=== PATIENT | female | born 1955 | race Caucasian/White ===

== ENCOUNTER → 2021-01-15 11:40 | Outpatient (CLI) | payer OTHER, SELFPAY ==
[2021-01-15 12:21] LABS: Add Manual Diff / Slide Review NO; Basophils Absolute Auto 100 /uL (0-100); Basophils Percent Auto 0.9 % (0-2); Eosinophils Absolute Auto 200 /uL (0-450); Eosinophils Percent Auto 3.2 % (2-4); Hematocrit 40.5 % (36-46); Hemoglobin 13.3 g/dL (12.0-16.0); Lymphocytes Absolute Auto 2200 /uL (1100-4500); Lymphocytes Percent Auto 34.1 % (25-40); Mean Corpuscular HGB Conc 32.8 % (30-36); Mean Corpuscular Hemoglobin 26.9 PG (26-34); Mean Corpuscular Volume 81.8 fL (80-100); Monocytes Absolute Auto 600 /uL (0-900); Monocytes Percent Auto 8.8 % (3-14); Neutrophils Absolute Auto 3400 /uL (1500-7000); Platelet Count 212 X10^3/uL (150-400); Red Blood Cell Count 4.95 X10^6/uL (4.0-5.2); Red Cell Distribution Width 13.7 % (11.6-14.8); White Blood Cell Count 6.4 X10^3/uL (4.5-11.0)
[2021-01-15 12:33] LABS: Hemoglobin A1C% w Est Avg Glu 5.9 % (4.0-6.0)
[2021-01-15 12:39] LABS: Alanine Aminotransferase 30 IU/L (<35); Albumin 4.1 g/dL (3.5-5.0); Albumin Globulin Ratio 1.6 (1.0-2.8); Alkaline Phosphatase 82 U/L (38-126); Aspartate Aminotransferase 30 IU/L (14-36); BUN Creatinine Ratio 18.6 (6-22); Bilirubin Total 0.4 mg/dL (0.2-1.3); Blood Urea Nitrogen 13 mg/dL (7-17); Calcium 9.3 mg/dL (8.4-10.2); Carbon Dioxide 27 mmol/L (22-32); Chloride 105 mmol/L (98-107); Cholesterol 240 mg/dL (140-199); Estimated Glomerular Filt Rate > 60.0 mL/min (>60); Globulin 2.5 g/dL (1.7-4.1); Glucose 110 mg/dL (80-110); HDL Cholesterol 81 mg/dL (40-60); HEMOLYSIS < 15 (0-50); LDL Cholesterol Calculated 141 mg/dL (<100); Potassium 4.5 mmol/L (3.4-5.1); Sodium 139 mmol/L (137-145); Total Protein 6.6 g/dL (6.3-8.2); Triglycerides 88 mg/dL (35-150)
[2021-01-15 12:54] LABS: Vitamin D 25 Hydroxy (D3) 35.5 ng/mL (30.0-100.0)
[2021-01-15 13:08] LABS: TSH w/ Reflex to FT4 1.54 uIU/mL (0.47-4.68)
== END ==
PROVIDERS: Referring Provider Physician Assistant; Visit Provider Physician Assistant
DX: E66.9 Obesity, unspecified (principal); R53.83 Other fatigue; F33.0 Major depressive disorder, recurrent, mild; Z86.19 Personal history of other infectious and parasitic diseases; Z13.220 Encounter for screening for lipoid disorders
CPT/HCPCS: 36415; 80053; 80061; 82306; 83036; 84443; 85025

== ENCOUNTER → 2021-01-20 17:40 | Outpatient (CLI) | payer OTHER, SELFPAY ==
--- NOTE | 2021-01-20 | DI.MRI.S_ITS ---
PROCEDURE: MR KNEE LT WO CON INDICATIONS: Pain in left knee TECHNIQUE: Noncontrast sagittal PD fast spin echo and T2 fast spin echo with fat saturation, sagittal 3-D FLASH with fat saturation; coronal T1 spin echo and PD fast spin echo with fat saturation, and axial PD fast spin echo with fat saturation through the knee. COMPARISON: None. FINDINGS: Image quality: Excellent. Menisci: There is horizontal oblique tearing of the posterior horn and body of the medial meniscus extending to the inner third of the tibial articular surface. The lateral meniscus is intact. There is no significant meniscal extrusion. Cruciate ligaments: The anterior and posterior cruciate ligaments appear intact. Medial structures: The medial collateral ligament appears intact. The semimembranosus tendon insertions and meniscocapsular junction appear intact. Visualized portions of the pes anserinus tendons appear normal. No abnormal bursal fluid. Lateral structures: There is mild thickening of the proximal lateral collateral ligament, compatible with a prior low-grade sprain. The distal biceps femoris tendon and the conjoint tendon are intact. The popliteus tendon appears intact. No signs of posterolateral corner injury. Iliotibial band appears normal. Anterior structures: The quadriceps and patellar tendons appear intact. Patellar alignment is normal. No femoral trochlear dysplasia or ventral trochlear prominence. No edema in the infrapatellar fat pad. Bones and cartilage: No acute trabecular bone injury. There is mild to moderate partial-thickness cartilage thinning in the central to posterior weight-bearing portion of the medial femorotibial compartment. The lateral compartment articular cartilages are grossly maintained. Full-thickness cartilage loss is seen at the median ridge of the patella in the adjacent portions of the medial and lateral patellar facets with subchondral cystic changes and edema in mild irregularity of the subchondral plate. Cartilage fissuring is seen at the anterior aspect of the medial femoral condyle and in the trochlear groove. Joint space: A small joint effusion is present. There is a trace medial popliteal cyst. IMPRESSION: 1. Horizontal oblique tear of the posterior horn and body of the medial meniscus extending to the inner third of the tibial articular surface. 2. Full-thickness cartilage loss at the median ridge of the patella with subchondral cystic changes and edema. Additional deep cartilage fissuring is seen in the anterior compartment and there is grade 2-3 cartilage thinning in the medial compartment. 3. Chronic low-grade sprain of the proximal lateral collateral ligament. 4. Small joint effusion. Dictated by: Francisco Hudson M.D. on 01/21/2021 at 9:41 Approved by: Francisco Hudson M.D. on 01/21/2021 at 9:47
== END ==
PROVIDERS: Referring Provider Internal Medicine; Visit Provider Internal Medicine
DX: M25.562 Pain in left knee (principal); S83.242A Other tear of medial meniscus, current injury, left knee, initial encounter; S83.422A Sprain of lateral collateral ligament of left knee, initial encounter; M25.462 Effusion, left knee
CPT/HCPCS: 73721

== ENCOUNTER → 2021-01-30 16:14 | Outpatient (CLI) | payer OTHER, SELFPAY ==
--- NOTE | 2021-01-30 | DI.MG.S_ITS ---
BILATERAL DIGITAL SCREENING MAMMOGRAM 3D/2D WITH CAD: 01/30/2021 CLINICAL: Routine screening. Baseline exam. No prior exams were available for comparison. There are scattered fibroglandular elements in both breasts. Current study was also evaluated with a Computer Aided Detection (CAD) system. No significant masses, calcifications, or other findings are seen in either breast. IMPRESSION: NEGATIVE There is no mammographic evidence of malignancy. A 1 year screening mammogram is recommended. This exam was interpreted at Station ID: [id number]. NOTE: For mammograms, a report in lay terms will be sent to the patient. Approximately 15% of breast malignancies will not be visualized mammographically. In the management of a palpable breast mass, a negative mammogram must not discourage biopsy of a clinically suspicious lesion. Electronically Signed By: Abhilash stubbs/claus:01/30/2021 17:28:30 letter sent: Normal Exam ACR BI-RADS Category 1: Negative [id number]
== END ==
PROVIDERS: PCP Physician Assistant; Referring Provider Physician Assistant; Visit Provider Physician Assistant
DX: Z12.31 Encounter for screening mammogram for malignant neoplasm of breast (principal)
CPT/HCPCS: 77063; 77067

== ENCOUNTER 2021-02-19 14:47 | Emergency (ER) | payer OTHER, SELFPAY ==
[2021-02-19 14:50] VITALS: BP 123/57; PULSE 65; RESP 15; TEMP 36.4; O2SAT 100; BMI 31.0
[2021-02-19 14:53] VITALS: BP 123/57; PULSE 66; O2SAT 100
--- NOTE | 2021-02-19 14:55 | ED.ALLEREA ---
HPI - Allergic Reaction General Chief complaint: Allergic Reaction Stated complaint: Stung by bee on face/feels faint Time Seen by Provider: 02/19/21 14:53 Source: patient Mode of arrival: Ambulatory Limitations: no limitations History of Present Illness HPI narrative: 65-year-old female nonsmoker with noncontributory medical history presents with a chief complaint of a bee sting on the right side of her face minutes prior to her arrival. She thinks she had a previous allergic reaction to a bee sting but is unable to describe what that may have been. She is very anxious and feels shaky, she thinks she maybe even taken an extra dose of 1 of her anti anxiety medications. She did not take any allergic medications such as Benadryl or Pepcid prior to coming. Initially she states that she has no tongue, lip or throat swelling nor any difficulty swallowing or breathing but changes her tone a bit on repeat question. She denies any rash or GI complaints such as abdominal pain or diarrhea MD complaint: allergic reaction Onset (ago): minute(s) Exposure: insect bite Symptoms: difficulty swallowing and difficulty breathing Severity: mild Treatment prior to arrival: none Previous Allergic Reaction History: other Related Data Previous Rx's Medication Instructions Recorded epinephrine [EpiPen 2-Carl] 0.3 mg IM Q5-15M PRN #2 each 02/19/21 prednisone 40 mg PO DAILY #5 tab 02/19/21 Allergies Allergy/AdvReac Type Severity Reaction Status Date / Time acetaminophen [From VICODIN] Allergy Unknown Verified 02/19/21 14:56 bee venom protein (honey bee) Allergy Unknown Verified 02/19/21 14:56 [BEE VENOM PROTEIN (HONEY BEE)] hydrocodone [HYDROCODONE] Allergy Unknown Verified 02/19/21 14:56 Review of Systems Constitutional Constitutional: Denies chills, Denies fatigue, Denies fever(s), Denies frequent falls, Denies lethargy and Denies weakness Eyes Eyes: Denies change in vision, Denies eye discharge, Denies irritation and Denies loss of vision ENT Ears, Nose, Mouth, and Throat: Denies change in voice, Denies dizziness, Denies neck pain, Denies sore throat and Reports throat swelling Cardiovascular Cardiovascular: Denies chest pain, Denies irregular heart rhythm, Denies lightheadedness, Denies palpitations, Reports dyspnea, Denies dyspnea on exertion and Denies orthopnea Respiratory Respiratory: Denies cough, Reports dyspnea, Denies dyspnea on exertion and Denies wheezing Gastrointestinal Gastrointestinal: Denies abdominal pain, Denies change in bowel habits, Denies diarrhea, Denies nausea and Denies vomiting Musculoskeletal Musculoskeletal: Denies neck pain and Denies numbness Integumentary/Breasts Skin/Breast: Denies pruritus, Denies erythema, Denies rash and Denies wounds Neurologic Neurologic: Denies behavioral changes, Denies confusion, Denies dizziness, Denies frequent falls, Denies loss of vision, Denies numbness and Denies weakness Psychiatric Psychiatric: Denies anxiety, Denies behavioral changes, Denies confusion, Denies depression, Denies homicidal ideation and Denies suicidal ideation Endocrine Endocrine: Denies fatigue, Denies flushing and Denies palpitations Hematologic/Lymphatic Hematologic/Lymphatic: Denies easy bruising Allergic/Immunologic Allergic/Immunologic: Denies urticaria, Reports throat swelling and Denies wheezing Patient History Surgical History History of tonsillectomy Status post hysterectomy Status post myomectomy Family History Sister Age: 58 Diabetes mellitus Hypertension Hyperlipidemia Bipolar 1 disorder Sister Age: 60 An's disease Social History Smoking Status: Unknown if ever smoked Exam Narrative Exam Narrative: GENERAL: [65] year old patient appears stated age. Well-developed patient, in mild distress. Anxious HEAD: Atraumatic. Normocephalic. EYES: Pupils equal round and reactive. Extraocular motions intact. No scleral icterus. No injection or drainage. ENT: No obvious swelling of tongue, lip, throat Nose without bleeding, purulent drainage. Throat without erythema, tonsillar hypertrophy or exudate. Airway patent. NECK: Trachea midline. Non tender CARDIOVASCULAR: Regular rate and rhythm without murmurs, gallops, or rubs. RESPIRATORY: Clear to auscultation. Breath sounds equal bilaterally. No wheezes, rales, or rhonchi. GASTROINTESTINAL: Abdomen soft, non-tender, nondistended. EXTREMITIES: No edema or joint tenderness. BACK: Nontender without deformity or crepitance. No flank tenderness. NEURO: AOx3. SKIN: No rash or erythema of visible areas Initial Vital Signs Initial Vital Signs: Vital Signs Temperature 97.5 F L 02/19/21 14:50 Pulse Rate 65 02/19/21 14:50 Respiratory Rate 15 02/19/21 14:50 Blood Pressure 123/57 L 02/19/21 14:50 Pulse Oximetry 100 02/19/21 14:50 Course Course Course Narrative: Resting comfortably, feeling better after above-stated therapies Orders Ordered: Sodium Chloride (Normal Saline 0.9%) 1,000 mls @ 150 mls/hr IV CONT RICO Last Infusion: 02/19/21 16:32 Dose: 0 mls/hr Documented by: Admin: 02/19/21 14:59 Dose: 150 mls/hr Documented by: STEWART Discontinued Medications Diphenhydramine HCl (Diphenhydramine 50 Mg/Ml Vial) 25 mg IV NOW ONE Stop: 02/19/21 14:54 Last Admin: 02/19/21 14:59 Dose: 25 mg Documented by: STEWART Epinephrine HCl (Epinephrine 1 Mg/Ml) 0.5 mg IM NOW ONE Stop: 02/19/21 14:54 Last Admin: 02/19/21 15:00 Dose: 0.5 mg Documented by: STEWART Famotidine (Pepcid) 20 mg in 50 mls @ 200 mls/hr IV NOW ONE Stop: 02/19/21 15:07 Last Infusion: 02/19/21 15:36 Dose: 0 mls/hr Documented by: Admin: 02/19/21 15:00 Dose: 200 mls/hr Documented by: STEWART Methylprednisolone (Methylprednisolone 125 Mg/2 Ml Vial) 125 mg IV NOW ONE Stop: 02/19/21 14:54 Last Admin: 02/19/21 15:00 Dose: 125 mg Documented by: STEWART Vital Signs Vital signs: Vital Signs - 8 hr 02/19/21 14:50 02/19/21 14:53 02/19/21 15:00 Temperature 97.5 F L Pulse Rate 65 66 59 L Respiratory Rate 15 Blood Pressure 123/57 L 123/57 L 127/58 L Pulse Oximetry 100 100 97 02/19/21 15:30 02/19/21 16:00 02/19/21 16:32 Temperature Pulse Rate 97 H 94 H 95 H Respiratory Rate 24 20 18 Blood Pressure 179/77 H 143/65 H 143/65 H Pulse Oximetry 96 96 97 MDM - Allergic Reaction MDM Narrative Medical decision making narrative: Patient had minimal symptoms at onset and improvement with above-stated therapies. She has stable vitals, no facial swelling, throat swelling, trouble breathing or rash. Return precautions given and questions answered to her apparent satisfaction Discharge Plan Departure Patient Disposition: Home Clinical Impression: Allergic reaction Qualifiers: Encounter type: initial encounter Qualified Code(s): T78.40XA - Allergy, unspecified, initial encounter Instructions: DI for General Allergic Reactions Activity Restrictions/Additional Instructions: *You have been diagnosed with [allergic reaction from bee sting, mild symptoms with improvement after typical therapies *What to do: *Please continue to take your regular medications as directed. [ x] New medication prescriptions sent to your pharmacy: [[facility] ] Additionally please take [id number] antihistamines such as Benadryl and Pepcid for ongoing itching or swelling. *Please follow up with your primary care provider in 2-3 days, call for an appointment. Let them know you were seen in the Emergency Department and that we ask that you be seen in follow up. We will electronically transmit a record of today's note if your PCP is in our system *If you do not have a primary care provider please contact the [facility] Resource line at [phone]. They will ask some questions about your medical history and help get you set up with a doctor in the community. *Return to Emergency Department if you should have any new, worsening or concerning symptoms, such as [fever greater than 101 F, shaking chills, worsening pain, persistent vomiting or other bothersome symptoms] Prescriptions: New prednisone 20 mg tablet 40 mg PO DAILY Qty: 5 RF: 0 epinephrine [EpiPen 2-Carl] 0.3 mg/0.3 mL auto-injector 0.3 mg IM Q5-15M PRN (Reason: anaphylaxis) Qty: 2 RF: 0 Referrals: Shawanda Enriquez PA-C [Primary Care Provider] -
[2021-02-19] MEDS: SODIUM CHLORIDE 0.9% 1,000 ML 150 ML IV (14:59)
[2021-02-19] MEDS: diphenhydrAMINE 50 MG/ML VIAL 25 MG IV (14:59)
[2021-02-19 15:00] VITALS: BP 127/58; PULSE 59; O2SAT 97
[2021-02-19] MEDS: EPINEPHrine 1 MG/ML 0.5 MG IM (15:00)
[2021-02-19] MEDS: FAMOTIDINE 20 MG/50 ML PIGGYBACK 200 MG IV (15:00)
[2021-02-19] MEDS: methylPREDNISolone 125 MG/2 ML VIAL IV (15:00)
[2021-02-19 15:30] VITALS: BP 179/77; PULSE 97; RESP 24; O2SAT 96
--- NOTE | 2021-02-19 15:39 | PC.NURSE ---
pt states she was stung by a bee or wasp on the rt side of her face. pt states she put arnica on the area, didn't have benadryl. pt states she feels nauseated and like her heart is racing, at the time her heart rate was 60mph, she was diaphoretic, now resolved. airway clear.
[2021-02-19 16:00] VITALS: BP 143/65; PULSE 94; RESP 20; O2SAT 96
[2021-02-19 16:32] VITALS: BP 143/65; PULSE 95; RESP 18; O2SAT 97
== END 2021-02-19 16:33 | disposition home or self-care (01) ==
PROVIDERS: Emergency Provider Emergency Medicine; PCP Physician Assistant
DX: T63.441A Toxic effect of venom of bees, accidental (unintentional), initial encounter (principal); R06.00 Dyspnea, unspecified
CPT/HCPCS: 96361; 96365; 96372; 96375; 99284; J0171; J1200; J2930

== ENCOUNTER → 2023-01-30 13:15 | Outpatient (CLI) | payer OTHER, SELFPAY | PROVIDERS: PCP Physician Assistant; Visit Provider Nurse Practitioner Family | DX: Q30.9 Congenital malformation of nose, unspecified (principal) | CPT/HCPCS: 87070; 87075; 87077; 87147; 87186; 87205 ==

== ENCOUNTER → 2023-04-27 16:23 | Outpatient (CLI) | payer OTHER, SELFPAY ==
--- NOTE | 2023-04-27 16:27 | DI.RAD.S_ITS ---
PROCEDURE: XR KNEE LT 3V INDICATIONS: L knee pain/swelling TECHNIQUE: 3 views of the knee were acquired. COMPARISON: None. FINDINGS: Bones: No fractures or dislocations. No suspicious bony lesions. Soft tissues: Small joint effusion. No suspicious soft tissue calcifications. IMPRESSION: Small knee joint effusion, without displaced fracture. Dictated by: Vickey Carter M.D. on 04/27/2023 at 16:48 Approved by: Vickey Carter M.D. on 04/27/2023 at 16:48
== END ==
PROVIDERS: PCP Physician Assistant; Referring Provider Student in an Organized Health Care Education/Training Program; Visit Provider Student in an Organized Health Care Education/Training Program
DX: M25.562 Pain in left knee (principal); M25.462 Effusion, left knee
CPT/HCPCS: 73562

== ENCOUNTER → 2023-05-21 15:17 | Outpatient (CLI) | payer OTHER, SELFPAY ==
--- NOTE | 2023-05-21 15:21 | DI.MRI.S_ITS ---
PROCEDURE: MR KNEE LT WO CON INDICATIONS: Pain in L knee TECHNIQUE: Noncontrast sagittal PD fast spin echo and T2 fast spin echo with fat saturation, sagittal 3-D FLASH with fat saturation; coronal T1 spin echo and PD fast spin echo with fat saturation, and axial PD fast spin echo with fat saturation through the knee. COMPARISON: [facility], CR, XR KNEE LT 3V, 04/27/2023, 16:30. [facility], MR, MR KNEE LT WO CON, 01/20/2021, 17:53. FINDINGS: Image quality: Excellent. Anterior Cruciate Ligament: Intact. Posterior Cruciate Ligament: Intact. Medial Collateral Ligament: Mild thickening of the proximal medial collateral ligament is most likely secondary to a remote prior low-grade sprain. Lateral Collateral Ligament: Remote prior low-grade sprain of the proximal lateral collateral ligament. Medial Meniscus: There is complex tearing of the medial meniscus with a radial component at the posterior horn, a horizontal oblique component at the posterior horn and body, and a vertical longitudinal component at the posterior root attachment. Lateral Meniscus: Intact. Medial and Lateral Tendons: The semimembranosus tendon insertions and meniscocapsular junction appear intact. Visualized portions of the pes anserinus tendons appear normal. No abnormal bursal fluid. The long and short heads of the biceps femoris tendon appear intact. The popliteus tendon appears intact. No signs of posterolateral corner injury. Iliotibial band appears normal. Anterior Structures: The quadriceps and patellar tendons appear intact. No patellar subluxation. No femoral trochlear dysplasia or ventral trochlear prominence. No edema in the infrapatellar fat pad. Bones: Subchondral linear hypointensity is seen at the central weight-bearing portion of the medial femoral condyle measuring 1.3 x 1.0 cm with moderate surrounding osseous edema. No depression of the articular surface is seen. No fluid is seen to suggest a loose osteochondral fragment. Medial Femorotibial Cartilage: There is moderate partial-thickness cartilage irregularity in the weight-bearing portion of the medial femorotibial compartment. Lateral Femorotibial Cartilage: Partial-thickness cartilage irregularity is seen at the far posterior non weight-bearing portion of the lateral femoral condyle. Patellofemoral Cartilage: Full-thickness cartilage loss is seen at the median ridge of the patella with subchondral cystic changes and subchondral edema as well as subchondral osteophyte formation. Full-thickness cartilage loss and subchondral cystic changes are also seen at the medial femoral trochlea. Soft Tissues: A medium-sized joint effusion is present. Trace medial popliteal cyst. There is mild edema within the inferior portion of the vastus medialis muscle consistent with a low-grade strain. IMPRESSION: 1. Nondepressed subchondral fracture at the central weight-bearing portion of the medial femoral condyle measuring 1.3 x 1.0 cm with moderate surrounding osseous edema. No loose osteochondral fragment is seen. 2. Complex tearing of the medial meniscus with a radial component at the posterior horn, a horizontal oblique component at the posterior horn and body, and a vertical longitudinal component at the posterior root attachment. 3. Chronic low-grade sprains of the proximal medial and lateral collateral ligaments. 4. Full-thickness cartilage loss in the anterior compartment with subchondral cystic changes, edema, and subchondral osteophyte formation. Grade 2-3 chondromalacia in the medial compartment and mild grade 2 chondromalacia in the lateral compartment. 5. Low-grade strain of the distal vastus medialis muscle. 6. Moderate joint effusion. Approved by: Francisco Hudson M.D. on 05/23/2023 at 11:31
== END ==
PROVIDERS: PCP Physician Assistant; Referring Provider Physician Assistant; Visit Provider Physician Assistant
DX: S72.432A Displaced fracture of medial condyle of left femur, initial encounter for closed fracture (principal); S83.232A Complex tear of medial meniscus, current injury, left knee, initial encounter; S83.412A Sprain of medial collateral ligament of left knee, initial encounter; S83.422A Sprain of lateral collateral ligament of left knee, initial encounter; S76.112A Strain of left quadriceps muscle, fascia and tendon, initial encounter; M25.562 Pain in left knee; M94.262 Chondromalacia, left knee; M25.462 Effusion, left knee
CPT/HCPCS: 73721

== ENCOUNTER → 2023-10-25 10:56 | Outpatient (CLI) | payer OTHER, SELFPAY ==
--- NOTE | 2023-10-25 10:59 | DI.RAD.S_ITS ---
PROCEDURE: XR HIP W PEL IF DONE LT 2V INDICATIONS: left hip pain TECHNIQUE: AP pelvis with lateral view(s) of the left hip(s). COMPARISON: None. FINDINGS: Bones: No fractures or dislocations. Pelvic ring appears intact. No suspicious bony lesions. Mild bilateral degenerative hip joint space narrowing. Degenerative changes are present lower lumbar spine. Soft tissues: The visualized bowel gas pattern is normal. No suspicious soft tissue calcifications. IMPRESSION: Mild bilateral hip arthritic change. Dictated by: Chelo Ramos M.D. on 10/25/2023 at 15:37 Approved by: Chelo Ramos M.D. on 10/25/2023 at 15:37
--- NOTE | 2023-10-25 10:59 | DI.RAD.S_ITS ---
PROCEDURE: XR LUMBAR SPINE 2-3V INDICATIONS: Back pain TECHNIQUE: 3 views of the lumbar spine were acquired. COMPARISON: [facility], CT, CT ABDOMEN PELVIS WITH CONTRAST, 10/09/2020, 21:31. FINDINGS: Bones: 5 [id number] vertebrae are present. There is normal bony alignment. There is multilevel degenerative disc space narrowing most prominent L4-5 and L5-S1. Mild foraminal narrowing is present at L5-S1. Mild height loss is present at T12, similar versus minimally more prominent compared to 2020. . No suspicious bony lesions. Soft tissues: Overlying bowel gas pattern is normal. No suspicious soft tissue calcifications. IMPRESSION: Mild height loss at T12 of indeterminate age although likely chronic. Dictated by: Chelo Ramos M.D. on 10/25/2023 at 15:35 Approved by: Chelo Ramos M.D. on 10/25/2023 at 15:36
--- NOTE | 2023-10-25 10:59 | DI.RAD.S_ITS ---
PROCEDURE: XR THORACIC SPINE 2V INDICATIONS: Back pain TECHNIQUE: 2 views of the thoracic spine were acquired. COMPARISON: [facility], CT, CT ABDOMEN PELVIS WITH CONTRAST, 10/09/2020, 21:31. FINDINGS: Bones: Slight vertebral body height loss at the lower thoracic spine, unchanged compared to prior exam.. No suspicious bony lesions. 12 pairs of ribs are noted, and appear intact where visualized. Scattered areas of multilevel degenerative disc space narrowing. Soft tissues: No paravertebral stripe thickening. IMPRESSION: No acute bony abnormality. Dictated by: Chelo Ramos M.D. on 10/25/2023 at 17:06 Approved by: Chelo Ramos M.D. on 10/25/2023 at 17:07
== END ==
LOC: RAD 10:58
PROVIDERS: PCP Physician Assistant; Referring Provider Nurse Practitioner Family; Visit Provider Nurse Practitioner Family
DX: M48.07 Spinal stenosis, lumbosacral region (principal); M48.061 Spinal stenosis, lumbar region without neurogenic claudication; M25.552 Pain in left hip; M54.9 Dorsalgia, unspecified
CPT/HCPCS: 72070; 72100; 73502

== ENCOUNTER → 2024-12-06 15:05 | Outpatient (CLI) | payer MEDICARE, SELFPAY ==
--- NOTE | 2024-12-06 15:06 | DI.RAD.S_ITS ---
PROCEDURE: XR DEXA AXIAL SKELETON INDICATIONS: ASYMPTOMATIC POSTMENOPAUSAL STATE COMPARISON: None. FINDINGS: Lumbar Spine: Bone mineral density 0.783 g/cm2, T score -2.4. Left Femoral Neck: Bone mineral density 0.498 g/cm2, T score -3.2. Left Hip: Bone mineral density 0.668 g/cm2, T score -2.2. Fracture Risk Calculation (when applicable): 10-year fracture risk of a major osteoporotic fracture 19 percent and of a hip fracture 6.3 percent. (T score greater or equal to -1.0 to: NORMAL) (T score from -1.1 to -2.4: OSTEOPENIA) (T score less than or equal to -2.5: OSTEOPOROSIS) IMPRESSION: Osteoporosis--- recommend repeat DEXA in 2 years or less for reassessment of response to treatment. Follow-up guidelines as follows: Osteoporosis: Consider a repeat DEXA and Vertebral Fracture Assessment (VFA) exam in 2 years or sooner if medically necessary, to reassess this patient's status. Osteopenia: Consider a repeat DEXA in 2-3 years to reassess this patient's status, or if there is a new clinical indication. Normal: Consider a repeat DEXA in 5 years or sooner, or if there is a new clinical indication. All treatment decisions require clinical judgment and consideration of individual patient factors, including patient preferences, comorbidities, previous drug use, risk factors not captured in the FRAX model (e.g., frailty, falls, vitamin D deficiency, increased bone turnover, interval significant decline in bone density ) and possible under- or over-estimation of fracture risk by FRAX. In addition, the NOF Guide recommends that FDA-approved medical therapies be considered in postmenopausal women and men age >= 50 years with a: * Hip or vertebral (clinical or morphometric) fracture * T-score of <=-2.5 at the spine or hip * Ten-year fracture probability by FRAX of >= 3% for hip fracture or >=20% for major osteoporotic fracture. Dictated by: Nirmal Costa M.D. on 12/06/2024 at 19:12 Approved by: Nirmal Costa M.D. on 12/06/2024 at 19:15
== END ==
PROVIDERS: PCP Physician Assistant; Referring Provider Physician Assistant; Visit Provider Physician Assistant
DX: M81.0 Age-related osteoporosis without current pathological fracture (principal); Z78.0 Asymptomatic menopausal state
CPT/HCPCS: 77080